=== PATIENT | male | born 1965 | race Caucasian/White ===

== ENCOUNTER 2021-04-30 17:07 | Outpatient (CLI) | payer OTHER, SELFPAY ==
--- NOTE | ~2021-04-30 | CT_ITS ---
EXAMINATION: CT abdomen pelvis wo con EXAM DATE: 04/30/2021 17:46 INDICATION: Acute left flank pain. TECHNIQUE: Spiral CT of the abdomen and pelvis was performed without contrast. Axial, coronal and sag ittal images were reviewed. The dose-length product (DLP) for this examination was 576.15 mGy-cm. T he exposure was tailored according to patient size (auto mA exposure control), and iterative reconstr uction (ASIR) was used as additional dose reduction technique. There is no prior study for compariso n. FINDINGS: There is dense multisegmental left lower lobe consolidation consistent with bacterial pneum onia. Smaller amount of right middle lobe and lingular pneumonia. There is no nephrolithiasis or hydr onephrosis. The prostate is unremarkable. Small right inguinal fat-containing hernia. The bladder is unremarkable. The liver, spleen, adrenal glands and pancreas are unremarkable. Gallbladder is un remarkable. No biliary obstruction. There is no retroperitoneal or pelvic lymphadenopathy. The appendix is normal. There is mild scattered colonic diverticulosis. There is no adjacent inflamm atory change to suggest diverticulitis. The stomach and small bowel are unremarkable. There is expec jay amount of colonic stool. No free intraperitoneal gas. The heart is normal in size. There are no pericardial or pleural effusions. IMPRESSION: 1. Multi segmental left lower lobe predominant consolidation most likely bacterial pneumonia. 2. No nephrolithiasis, hydronephrosis or acute intra-abdominal findings. 3. Mild colonic diverticulosis. 4. Small right inguinal hernia. Reviewed, dictated and finalized at location A. IMPRESSION: 1. Multi segmental left lower lobe predominant consolidation most likely bacte rial pneumonia. 2. No nephrolithiasis, hydronephrosis or acute intra-abdominal findings. 3. Mild colonic diverticulosis. 4. Small right inguinal hernia.
== END 2021-04-30 17:08 | disposition home or self-care (01) ==
LOC: ANHIMG 17:10
PROVIDERS: Visit Provider Registered Nurse
DX: R10.9 Unspecified abdominal pain (principal); R91.8 Other nonspecific abnormal finding of lung field; K57.90 Diverticulosis of intestine, part unspecified, without perforation or abscess without bleeding; K40.90 Unilateral inguinal hernia, without obstruction or gangrene, not specified as recurrent
CPT/HCPCS: 74176

== ENCOUNTER 2024-02-04 12:33 | Outpatient (CLI) | payer OTHER, SELFPAY ==
--- NOTE | 2024-02-04 16:47 | WPDPFTINT ---
PFT Procedure Performed PFT Procedure Performed Spirometry with Pre/Post Bronchodilator Plethysmography (Lung Vol) Diffusing Cap (DLCO) Flow Vol Loop PFT Interpretation This is a pulmonary function test with pre and post-bronchodilator spirometry, plethysmography and diffusing capacity. The test was performed and results interpreted in accordance with the 2019 and 2005 ATS/ERS Task Force guidelines respectively using the Global Lung Function Initiative-2012 reference equations. Patient demonstrated good effort and cooperation. Reproducibility criteria were met. The quality of the pre bronchodilator spirometry maneuver was Grade A and post bronchodilator spirometry maneuver was Grade A. Findings: Spirometry: The contour the expiratory flow tracing demonstrates a mid expiratory plateau referred to as the knee pattern in 3 of 4 pre bronchodilator maneuvers and 1 of 3 post bronchodilator maneuvers. The the contour of the inspiratory flow tracing is normal. The pre bronchodilator FVC is 3.40 L, 79% predicted. The pre bronchodilator FEV1 is 2.38 L, 70% predicted. The pre bronchodilator FEV1: FVC ratio 70%. The post bronchodilator FVC is 3.75 L, representing a 10% increase. The post bronchodilator FEV1 is 2.67 L, representing a 12% increase. The post bronchodilator FEV1: FVC ratio 71%. Plethysmography: The total lung capacity is 5.96 L, 94% predicted. The functional residual capacity is 3.63 L, 112% predicted. The residual volume is 2.44 L, 122% predicted. Diffusing capacity: The diffusing capacity unadjusted for hemoglobin and carboxyhemoglobin is 19.3, 69% predicted. The diffusing capacity adjusted for alveolar volume is 3.99, 88% predicted. Impression: The contour the expiratory flow tracing demonstrates a reproducible knee pattern that can be a normal variant or pathologic and has been attributed to a choke point section of the bronchial tree. The normal variant is more common in younger female patients, decreases with age and is more pronounced in the post bronchodilator efforts. The pattern has also been described with kyphosis, kyphoscoliosis, central obstructing mass, and post lung transplantation. Otherwise, the spirometry is normal without evidence of an obstructive abnormality. There is significant improvement after inhaling a single dose of albuterol. The lung volumes are normal. The diffusing capacity unadjusted for hemoglobin and carboxyhemoglobin is mildly decreased and normalizes when adjusted for alveolar volume. There are no prior studies for comparison
== END 2024-02-04 12:34 | disposition home or self-care (01) ==
LOC: ANHPFT 12:34
PROVIDERS: PCP Registered Nurse; Visit Provider Registered Nurse
DX: J45.40 Moderate persistent asthma, uncomplicated (principal); F17.210 Nicotine dependence, cigarettes, uncomplicated
CPT/HCPCS: 94060; 94726; 94729

== ENCOUNTER 2024-03-30 06:36 | Day surgery (SDC) | payer OTHER, SELFPAY ==
[2024-02-03 09:17] VITALS: BMI 29.0
[2024-03-10 11:19] VITALS: BMI 29.0
--- NOTE | 2024-03-30 06:54 | P.PNAN_ITS ---
Anes - Initial Pre Proc Eval Procedure: Operation Date: 03/30/24 08:30 Proposed Procedures p Screening Colonoscopy - Tanmay Bates MD Date/Time: 03/30/24 06:54 Surgeon: Tanmay Bates MD Pre Op Diagnosis: Neoplasm screening Patient Data Age: 58 Gender: M Height: 1.7 m Weight: 84 kg Allergies Allergy/AdvReac Type Severity Reaction Status Date / Time No Known Allergies Allergy Mild Verified 03/30/24 07:15 Home Medications Medication Instructions Recorded Confirmed Type sodium,potassium,mag sulfates 17.5 See Rx Instructions PO .COMPLEX 02/03/24 Rx gram-3.13 gram-1.6 gram oral soln #354 mL (Suprep Bowel Prep Kit) albuterol sulfate 90 mcg/actuation 1 puff inhalation Q4H PRN 03/10/24 03/30/24 History aerosol inhaler Shortness Of Breath mometasone-formoterol HFA 100 1 puff inhalation DAILY 03/10/24 03/30/24 History mcg-5 mcg/actuation aerosol inhaler (Dulera) Patient hx anesthesia problems: none Family hx anesthesia problems: none Results Review: All pre-operative results and documents have been reviewed as part of the pre- operative evaluation. [facility] Past Medical History Medical History (Updated 03/30/24 @ 08:24 by Tanmay Bates MD) COPD (chronic obstructive pulmonary disease) Social History Social History (System 01/08/22 @ 07:18 by Louise Frankel) Smoking packs per day: 2.5 Smoking cigarettes per day: 50.0 Years smoked: 42 Smoking pack-years: 105.00 Smoking status: Current every day smoker Tobacco type: cigarettes Alcohol intake: current Drinks per week: 30 Alcohol use details: beer Substance use type: does not use Living arrangements: with family Spiritual care concerns: No Anes - Eval Final PreProcedure Day of Procedure 03/30/24 06:54 Patient weight: overweight Heart: regular rate and rhythm Lungs: clear to auscultation Airway: Mallampati scale class II Neurological: alert and oriented Last oral intake: >/= 8 hours ASA classification: III Emergent: no Anesthetic plan: proceed Anesthesia type and monitoring: general GIVS and standard monitoring Results Review: All pre-operative results and documents have been reviewed as part of the pre- operative evaluation. Informed Consent: The patient's anesthetic plan and its attendant risks and benefits were discussed with the patient/family/POA. Questions were solicited and answers provided to the satisfaction of the patient/family/POA.
[2024-03-30 07:24] VITALS: BP 139/101; PULSE 94; RESP 20; TEMP 37.1; O2SAT 99; BMI 28.7
[2024-03-30] MEDS: LACTATED RINGERS 1,000 ML 150 ML IV CONT (07:40)
--- NOTE | 2024-03-30 08:00 | WPDANESEPPF ---
Anes - Initial Pre Proc Eval Procedure: Operation Date: 03/30/24 08:30 Proposed Procedures p Screening Colonoscopy - Tanmay Bates MD Date/Time: 03/30/24 08:00 Surgeon: Tanmay Bates MD Pre Op Diagnosis: Neoplasm screening Patient Data Age: 58 Gender: M Height: 1.7 m Weight: 83.15 kg Last Vital Signs Temp 37.1 C 03/30/24 07:24 Pulse 94 03/30/24 07:24 Resp 20 03/30/24 07:24 BP 139/101 H 03/30/24 07:24 Pulse Ox 99 03/30/24 07:24 O2 Del Method Room Air 03/30/24 07:24 Allergies Allergy/AdvReac Type Severity Reaction Status Date / Time No Known Allergies Allergy Mild Verified 03/30/24 07:15 Home Medications Medication Instructions Recorded Confirmed Type sodium,potassium,mag sulfates 17.5 See Rx Instructions PO .COMPLEX 02/03/24 Rx gram-3.13 gram-1.6 gram oral soln #354 mL (Suprep Bowel Prep Kit) albuterol sulfate 90 mcg/actuation 1 puff inhalation Q4H PRN 03/10/24 03/30/24 History aerosol inhaler Shortness Of Breath mometasone-formoterol HFA 100 1 puff inhalation DAILY 03/10/24 03/30/24 History mcg-5 mcg/actuation aerosol inhaler (Dulera) Patient hx anesthesia problems: none Family hx anesthesia problems: none Results Review: All pre-operative results and documents have been reviewed as part of the pre-operative evaluation. [facility] Past Medical History Medical History (Updated 03/30/24 @ 08:01 by Blaise Elliott CRNA) COPD (chronic obstructive pulmonary disease) Social History Social History (System 01/08/22 @ 07:18 by Louise Frankel) Smoking packs per day: 2.5 Smoking cigarettes per day: 50.0 Years smoked: 42 Smoking pack-years: 105.00 Smoking status: Current every day smoker Tobacco type: cigarettes Alcohol intake: current Drinks per week: 30 Alcohol use details: beer Substance use type: does not use Living arrangements: with family Spiritual care concerns: No Anes - Eval Final PreProcedure Day of Procedure 03/30/24 08:00 Patient weight: overweight Heart: regular rate and rhythm Lungs: clear to auscultation and normal air movement Airway: Mallampati scale class II Neurological: alert and oriented Last oral intake: >/= 8 hours ASA classification: III Emergent: no Anesthetic plan: proceed Anesthesia type and monitoring: general Results Review: All pre-operative results and documents have been reviewed as part of the pre-operative evaluation. Informed Consent: The patient's anesthetic plan and its attendant risks and benefits were discussed with the patient/family/POA. Questions were solicited and answers provided to the satisfaction of the patient/family/POA.
--- NOTE | 2024-03-30 08:22 | P.HP_ITS ---
History of Present Illness History of Present Illness Consent: Risks, benefits, and alternatives have been discussed and questions answered. Patient agrees to proceed with procedure. Chief complaint: Neoplasm screening Narrative: Peter Galo is a 58 year old male presents for screening colonoscopy. Patient's current weight appetite and bowel movements are normal. He denies abdominal pain. Patient has had no bleeding. Family history is noncontributor y. Review of Systems Review of Systems: All systems reviewed & are unremarkable except as noted in HPI and below PMFSH Past Medical History Medical History (Updated 03/30/24 @ 08:24 by Tanmay Bates MD) COPD (chronic obstructive pulmonary disease) Social History Social History (System 01/08/22 @ 07:18 by Louise Frankel) Smoking packs per day: 2.5 Smoking cigarettes per day: 50.0 Years smoked: 42 Smoking pack-years: 105.00 Smoking status: Current every day smoker Tobacco type: cigarettes Alcohol intake: current Drinks per week: 30 Alcohol use details: beer Substance use type: does not use Living arrangements: with family Spiritual care concerns: No Meds Home Medications and Allergies Home Medications Medication Instructions Recorded Confirmed Type sodium,potassium,mag sulfates 17.5 See Rx Instructions PO .COMPLEX 02/03/24 Rx gram-3.13 gram-1.6 gram oral soln #354 mL (Suprep Bowel Prep Kit) albuterol sulfate 90 mcg/actuation 1 puff inhalation Q4H PRN 03/10/24 03/30/24 History aerosol inhaler Shortness Of Breath mometasone-formoterol HFA 100 1 puff inhalation DAILY 03/10/24 03/30/24 History mcg-5 mcg/actuation aerosol inhaler (Dulera) Allergies Allergy/AdvReac Type Severity Reaction Status Date / Time No Known Allergies Allergy Mild Verified 03/30/24 07:15 Vital Signs Vital Signs - 24 hr 03/30/24 07:24 Temperature 98.7 F Pulse Rate 94 Respiratory Rate 20 Blood Pressure 139/101 H Pulse Oximetry 99 Oxygen Delivery Room Air Exam Narrative: Physical exam reveals patient to be alert. Signs stable. HEENT exam is unremarkable. Patient is anicteric. Lungs are clear to auscultation and perc ussion is without murmur or extra sounds. Abdomen sounds are present soft nontender with no organomegaly. Digital external rectal exam is normal. Assessment and Plan Assessment and plan (1) Encounter for screening colonoscopy: Code(s): Z12.11 - Encounter for screening for malignant neoplasm of colon Status: Acute Assessment and Plan: Patient presents today for screening colonoscopy. He appears to be at average risk the patient is may be given after endoscopy.
[2024-03-30 08:55] VITALS: BP 135/104; PULSE 99; RESP 14; O2SAT 100
[2024-03-30 09:05] VITALS: BP 143/112; PULSE 95; RESP 16; O2SAT 98
[2024-03-30 09:15] VITALS: BP 164/98; PULSE 89; RESP 20; O2SAT 98
--- NOTE | 2024-03-30 11:17 | WPDANESPN ---
Anes - Prog Note Post-Op Date/Time: 03/30/24 11:17 Cardiovascular status: normal Respiratory status: normal Airway patency: baseline Mental status: baseline Post-Op hydration status: normal Vital Signs: Last Vital Signs Temp 37.1 C 03/30/24 07:24 Pulse 89 03/30/24 09:15 Resp 20 03/30/24 09:15 BP 164/98 H 03/30/24 09:15 Pulse Ox 98 03/30/24 09:15 O2 Del Method Room Air 03/30/24 09:15 Pain Score (VAS): 0 I/O: Intake & Output 03/29/24 03/30/24 03/30/24 23:59 07:59 15:59 Intake Total 500 Balance 500 Post-procedural complaints: none Patient Feedback: Patient satisfied with anesthetic care. Other Findings: Patient vital signs back to baseline. Patient denies nausea and vomiting. Patient's pain under control. Patient OK for discharge.
== END 2024-03-30 09:40 | disposition home or self-care (01) ==
PROVIDERS: PCP Registered Nurse; Visit Provider Internal Medicine Gastroenterology
PROC: 0DJD8ZZ Inspection of Lower Intestinal Tract, Via Natural or Artificial Opening Endoscopic (ICD-10-PCS; CPT 45378; principal; 2024-03-30 08:30)
DX: Z12.11 Encounter for screening for malignant neoplasm of colon (principal); D12.3 Benign neoplasm of transverse colon; K57.30 Diverticulosis of large intestine without perforation or abscess without bleeding; K64.8 Other hemorrhoids
CPT/HCPCS: 45385

== ENCOUNTER 2024-03-30 07:00 | Outpatient (NON) | payer OTHER, SELFPAY | END 2024-03-30 07:01 | disposition home or self-care (01) | PROVIDERS: PCP Registered Nurse; Visit Provider Internal Medicine Gastroenterology | DX: Z12.11 Encounter for screening for malignant neoplasm of colon (principal); D12.3 Benign neoplasm of transverse colon | CPT/HCPCS: 88305 ==